=== PATIENT | male | born 1995 | race Caucasian/White ===

== ENCOUNTER → 2016-03-21 | Outpatient (CLI) | payer OTHER ==
--- NOTE | 2016-03-21 10:37 | MR ---
MRI Lower Extremity, Right Knee History: Right knee pain. ICD 10 code M25.561 Comparison: None. Technique: MRI was performed of the right knee using a 3 [employer] MRI system. Axial, sagittal, and coron al images were obtained with standard imaging sequences. Findings: General: Mild suprapatellar joint effusion. Mild bone marrow edema is seen in the mid to inferior fatuma e of the patella without evidence for fracture line. Ligaments and Tendons: Anterior cruciate and posterior cruciate ligaments are intact. Medial collater al ligament and pes anserinus are unremarkable. Iliotibial band, fibular collateral ligament, and bic eps femoris are unremarkable. Popliteus muscle and tendon are intact. Menisci and Cartilage: No evidence for medial meniscal tear. There is a focal area of cartilage signa l abnormality in the posterior nonweightbearing portion of the medial femoral condyle without attenua tion. No evidence for lateral meniscal tear. No significant cartilage signal abnormality or attenuati on in the lateral compartment. Extensor Mechanism: Cartilage signal abnormality is seen in the patella more predominant along the mi d median ridge of the patella with mild surface irregularity and fissuring but no significant attenua tion. Quadriceps tendon and patellar tendon are unremarkable. Medial and lateral retinacula are unrem arkable. Impression: 1. No evidence for meniscal tear. There is a focal area of grade 1 articular cartilage disease in the posterior nonweightbearing portion of the medial femoral condyle. 2. 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 Reactive bone marrow edema i n the patella versus bone contusion. 3. Mild suprapatellar joint effusion.
== END ==
LOC: FIMAGING 08:23
PROVIDERS: ATTEND Orthopaedic Surgery
DX: M25.561 Pain in right knee (principal); M22.41 Chondromalacia patellae, right knee; M25.461 Effusion, right knee; M24.10 Other articular cartilage disorders, unspecified site